=== PATIENT | male | born 1970 | race Caucasian/White ===

== ENCOUNTER 2019-08-13 22:08 | Inpatient (IN) ==
[2019-08-13] MEDS ORDERED: Aspirin 81 MG TAB.CHEW PO ONE (22:16)
[2019-08-13 22:44] LABS: Basophils % 0.6 %; Eosinophils # 0.3 K/mcL (0.0-0.6); Eosinophils % 4.2 %; Hematocrit 43.2 % (37.5-50.1); Immature Granulocytes % 0.3 % (0-4); Lymphocytes # 2.3 K/mcL (0.6-4.6); Lymphocytes % 33.7 %; Mean Corpuscular HGB Conc 34.7 g/dL (31.6-35.5); Mean Corpuscular Hemoglobin 29.1 pg (28.0-33.3); Mean Corpuscular Volume 83.9 fL (83.0-100.0); Mean Platelet Volume 9.4 fL (9.4-12.4); Monocytes # 0.3 K/mcL (0.0-1.3); Monocytes % 4.2 %; Neutrophils # 3.9 K/mcL (1.6-8.9); Platelet Count 213 K/mcL (140-400); Red Blood Count 5.15 M/mcL (4.19-5.50); Red Cell Distribution Width 12.8 % (11.5-14.5); White Blood Count 6.9 K/mcL (4.3-11.1)
[2019-08-13] MEDS: Nitroglycerin 0.4 MG TAB.SUBL SL PRN ×2 (22:45→22:50)
[2019-08-13] MEDS ORDERED: *HR* FentaNYL (PF) 100 MCG/2 ML VIAL IVP ONE (22:53)
[2019-08-13 22:58] LABS: Prothrombin Time 11.5 Seconds (9.4-12.1)
[2019-08-13 23:00] LABS: Activated Partial Thrombo Time 27.8 Seconds (26.0-36.0)
[2019-08-13 23:05] LABS: BUN/Creatinine Ratio 10 (6-26); Blood Urea Nitrogen 9 mg/dL (6-20); Calcium 9.1 mg/dL (8.6-10.3); Carbon Dioxide 21 mEq/L (23-29); Chloride 103 mEq/L (98-107); Glucose 177 mg/dL (70-105); Osmolality,Calculated 291 (280-300); Potassium 3.7 mEq/L (3.5-5.1); Sodium 139 mEq/L (136-145); eGFR For African Americans > 60 (> 60); eGFR For Non-African Americans > 60 (> 60)
[2019-08-13 23:06] LABS: Troponin I < 0.03 ng/mL (< 0.04)
[2019-08-14 04:26] LABS: Basophils # 0.1 K/mcL (0.0-0.2); Basophils % 0.7 %; Eosinophils # 0.2 K/mcL (0.0-0.6); Eosinophils % 2.3 %; Hematocrit 42.5 % (37.5-50.1); Hemoglobin 14.5 g/dL (12.9-16.9); Immature Granulocytes % 0.2 % (0-4); Lymphocytes # 2.4 K/mcL (0.6-4.6); Mean Corpuscular HGB Conc 34.1 g/dL (31.6-35.5); Mean Platelet Volume 9.6 fL (9.4-12.4); Monocytes # 0.6 K/mcL (0.0-1.3); Monocytes % 6.8 %; Platelet Count 228 K/mcL (140-400); Red Cell Distribution Width 12.8 % (11.5-14.5); White Blood Count 8.2 K/mcL (4.3-11.1)
[2019-08-14 04:48] LABS: BUN/Creatinine Ratio 11 (6-26); Blood Urea Nitrogen 10 mg/dL (6-20); Calcium 9.2 mg/dL (8.6-10.3); Carbon Dioxide 25 mEq/L (23-29); Chloride 106 mEq/L (98-107); Chol/HDL Ratio 4.1 (0-4.9); Cholesterol 212 mg/dL (< 200); Glucose 108 mg/dL (70-105); HDL Cholesterol 52 mg/dL (40-59); LDL Cholesterol,Calculated 148 mg/dL (0-99); Osmolality,Calculated 286 (280-300); Potassium 4.7 mEq/L (3.5-5.1); Sodium 138 mEq/L (136-145); Triglycerides 60 mg/dL (< 150); Troponin I 0.07 ng/mL (< 0.04); eGFR For African Americans > 60 (> 60); eGFR For Non-African Americans > 60 (> 60)
[2019-08-14 05:02] LABS: Thyroid Stimulating Hormone 1.784 mcIU/mL (0.340-5.600)
[2019-08-14] MEDS ORDERED: *HR* Heparin 5,000 UNIT/ML VIAL SQ SCH (06:00)
[2019-08-14 08:05] LABS: Estimated Average Glucose 120 mg/dl
[2019-08-14] MEDS ORDERED: *HR* Heparin 5,000 UNIT/ML VIAL IVP PRN ×2 (08:57)
[2019-08-14] MEDS: Aspirin 81 MG TAB.CHEW PO SCH (09:25)
[2019-08-14] MEDS: carvediloL 6.25 MG TABLET PO SCH ×2 (09:25→17:49)
[2019-08-14 10:12] LABS: Hematocrit 43.4 % (37.5-50.1); Hemoglobin 14.9 g/dL (12.9-16.9); Mean Corpuscular HGB Conc 34.3 g/dL (31.6-35.5); Mean Corpuscular Hemoglobin 29.2 pg (28.0-33.3); Mean Corpuscular Volume 85.1 fL (83.0-100.0); Mean Platelet Volume 9.4 fL (9.4-12.4); Platelet Count 224 K/mcL (140-400); Red Cell Distribution Width 12.9 % (11.5-14.5); White Blood Count 7.8 K/mcL (4.3-11.1)
[2019-08-14 10:18] LABS: Prothrombin Time 11.4 Seconds (9.4-12.1)
[2019-08-14] MEDS: Heparin 25,000 UNIT/250 ML D5W 25,000 UNIT/250 ML IV.SOLN IVC SCH (11:20)
[2019-08-15 06:09] LABS: Hemoglobin 13.7 g/dL (12.9-16.9); Mean Corpuscular HGB Conc 34.3 g/dL (31.6-35.5); Mean Corpuscular Hemoglobin 29.3 pg (28.0-33.3); Mean Corpuscular Volume 85.7 fL (83.0-100.0); Mean Platelet Volume 9.6 fL (9.4-12.4); Platelet Count 205 K/mcL (140-400); Red Blood Count 4.67 M/mcL (4.19-5.50); White Blood Count 7.7 K/mcL (4.3-11.1)
[2019-08-15 06:34] LABS: BUN/Creatinine Ratio 15 (6-26); Blood Urea Nitrogen 15 mg/dL (6-20); Calcium 8.7 mg/dL (8.6-10.3); Carbon Dioxide 26 mEq/L (23-29); Chloride 103 mEq/L (98-107); Glucose 115 mg/dL (70-105); Osmolality,Calculated 290 (280-300); Potassium 3.9 mEq/L (3.5-5.1); Sodium 139 mEq/L (136-145); eGFR For African Americans > 60 (> 60); eGFR For Non-African Americans > 60 (> 60)
[2019-08-15] MEDS ORDERED: Perflutren Lipid Microsphere 1.3 ML in 0.9 % Sodium Chloride 8.7 ML IVP ONE (07:09)
[2019-08-15] MEDS: Aspirin 81 MG TAB.CHEW PO SCH (10:30)
[2019-08-15] MEDS: Heparin 25,000 UNIT/250 ML D5W 25,000 UNIT/250 ML IV.SOLN IVC SCH (11:13)
[2019-08-15] MEDS: carvediloL 6.25 MG TABLET PO SCH ×2 (13:08→18:49)
[2019-08-15] MEDS ORDERED: ISOVUE-370 200 ML INFUS..BTL ONE ×2 (16:00→17:03)
[2019-08-15] MEDS ORDERED: Nitroglycerin 1,000 MCG/10 ML VIAL IV ONE ×2 (16:00→17:04)
[2019-08-15] MEDS ORDERED: *HR* Heparin 10,000 UNIT/10 ML VIAL ONE ×2 (16:00→17:03)
[2019-08-15] MEDS ORDERED: 0.9 % Sodium Chloride 2,000 ML ONE (16:00)
[2019-08-15] MEDS ORDERED: Heparin 1,000 UNITS/500 mL 0 ML ONE (16:00)
[2019-08-15] MEDS ORDERED: Heparin 1,000 UNITS/500 mL 500 ML ONE (17:03)
[2019-08-15] MEDS ORDERED: 0.9 % Sodium Chloride 1,000 ML ONE ×3 (17:03→17:36)
[2019-08-15] MEDS ORDERED: *HR* FentaNYL (PF) 100 MCG/2 ML VIAL ONE (17:34)
[2019-08-15] MEDS ORDERED: *HR* Midazolam HCl 2 MG/2 ML VIAL ONE (17:34)
[2019-08-16 01:43] LABS: Hematocrit 38.6 % (37.5-50.1); Hemoglobin 12.9 g/dL (12.9-16.9); Mean Corpuscular HGB Conc 33.4 g/dL (31.6-35.5); Mean Corpuscular Hemoglobin 29.3 pg (28.0-33.3); Mean Corpuscular Volume 87.5 fL (83.0-100.0); Mean Platelet Volume 9.8 fL (9.4-12.4); Platelet Count 188 K/mcL (140-400); Red Blood Count 4.41 M/mcL (4.19-5.50); Red Cell Distribution Width 12.8 % (11.5-14.5)
[2019-08-16] MEDS: Acetaminophen 325 MG TABLET PO PRN ×2 (01:48→21:03)
[2019-08-16 01:58] LABS: BUN/Creatinine Ratio 15 (6-26); Blood Urea Nitrogen 17 mg/dL (6-20); Calcium 8.8 mg/dL (8.6-10.3); Carbon Dioxide 26 mEq/L (23-29); Chloride 107 mEq/L (98-107); Glucose 97 mg/dL (70-105); Osmolality,Calculated 287 (280-300); Potassium 3.7 mEq/L (3.5-5.1); Sodium 138 mEq/L (136-145); eGFR For African Americans > 60 (> 60); eGFR For Non-African Americans > 60 (> 60)
[2019-08-16] MEDS: carvediloL 6.25 MG TABLET PO SCH ×2 (08:01→16:23)
[2019-08-16] MEDS: Aspirin 81 MG TAB.CHEW PO SCH (08:01)
[2019-08-16] MEDS: Heparin 25,000 UNIT/250 ML D5W 25,000 UNIT/250 ML IV.SOLN IVC SCH (10:09)
[2019-08-17] MEDS: Aspirin 81 MG TAB.CHEW PO SCH (08:56)
[2019-08-17] MEDS: Heparin 25,000 UNIT/250 ML D5W 25,000 UNIT/250 ML IV.SOLN IVC SCH (08:56)
[2019-08-17] MEDS: carvediloL 6.25 MG TABLET PO SCH ×2 (08:56→16:48)
[2019-08-18] MEDS: Heparin 25,000 UNIT/250 ML D5W 25,000 UNIT/250 ML IV.SOLN IVC SCH (05:35)
[2019-08-18] MEDS: carvediloL 6.25 MG TABLET PO SCH ×2 (08:44→17:13)
[2019-08-18] MEDS: Aspirin 81 MG TAB.CHEW PO SCH (09:05)
[2019-08-19] MEDS: Heparin 25,000 UNIT/250 ML D5W 25,000 UNIT/250 ML IV.SOLN IVC SCH (04:16)
[2019-08-19] MEDS: carvediloL 6.25 MG TABLET PO SCH ×2 (10:48→17:31)
[2019-08-19] MEDS: Aspirin 81 MG TAB.CHEW PO SCH (10:48)
[2019-08-20] MEDS: Heparin 25,000 UNIT/250 ML D5W 25,000 UNIT/250 ML IV.SOLN IVC SCH (02:09)
[2019-08-20] MEDS: Aspirin 81 MG TAB.CHEW PO SCH (08:52)
[2019-08-20] MEDS: carvediloL 6.25 MG TABLET PO SCH ×2 (08:52→15:47)
[2019-08-20] MEDS: Nitroglycerin 0.4 MG TAB.SUBL SL PRN (21:58)
[2019-08-20] MEDS: Acetaminophen 325 MG TABLET PO PRN (22:04)
[2019-08-20] MEDS ORDERED: Morphine Sulfate 2 MG/ML SYRINGE IVP PRN (23:08)
[2019-08-20 23:23] LABS: Hematocrit 41.8 % (37.5-50.1); Mean Corpuscular HGB Conc 35.2 g/dL (31.6-35.5); Mean Corpuscular Hemoglobin 29.6 pg (28.0-33.3); Mean Corpuscular Volume 84.1 fL (83.0-100.0); Platelet Count 243 K/mcL (140-400); Red Blood Count 4.97 M/mcL (4.19-5.50); Red Cell Distribution Width 13.1 % (11.5-14.5); White Blood Count 10.4 K/mcL (4.3-11.1)
[2019-08-20 23:24] LABS: Hemoglobin 14.7 g/dL (12.9-16.9)
[2019-08-20 23:46] LABS: BUN/Creatinine Ratio 12 (6-26); Blood Urea Nitrogen 15 mg/dL (6-20); Calcium 10.1 mg/dL (8.6-10.3); Carbon Dioxide 24 mEq/L (23-29); Chloride 102 mEq/L (98-107); Glucose 104 mg/dL (70-105); Osmolality,Calculated 283 (280-300); Potassium 4.1 mEq/L (3.5-5.1); Sodium 136 mEq/L (136-145); Troponin I < 0.03 ng/mL (< 0.04); eGFR For African Americans > 60 (> 60); eGFR For Non-African Americans 60 (> 60)
[2019-08-21] MEDS ORDERED: Nitroglycerin 0.4 MG TAB.SUBL SL PRN (00:28)
[2019-08-21] MEDS ORDERED: *HR* Heparin 5,000 UNIT/ML VIAL IVP PRN ×2 (00:28)
[2019-08-21] MEDS ORDERED: Acetaminophen 325 MG TABLET PO PRN (00:28)
[2019-08-21] MEDS: Heparin 25,000 UNIT/250 ML D5W 25,000 UNIT/250 ML IV.SOLN IVC SCH (01:32)
[2019-08-21] MEDS: Chlorhexidine Rinse 15 ML MOUTHWASH MM SCH ×2 (01:56→08:12)
[2019-08-21 04:49] LABS: Hematocrit 41.1 % (37.5-50.1); Hemoglobin 14.6 g/dL (12.9-16.9); Mean Corpuscular HGB Conc 35.5 g/dL (31.6-35.5); Mean Corpuscular Hemoglobin 29.6 pg (28.0-33.3); Mean Corpuscular Volume 83.4 fL (83.0-100.0); Platelet Count 225 K/mcL (140-400); Red Blood Count 4.93 M/mcL (4.19-5.50); White Blood Count 10.5 K/mcL (4.3-11.1)
[2019-08-21 04:51] LABS: INR 1.1; Prothrombin Time 12.1 Seconds (9.4-12.1)
[2019-08-21 05:04] LABS: Alanine Aminotransferase 62 Units/L (7-52); Albumin 3.9 g/dL (3.5-5.7); Albumin/Globulin Ratio 1.3 (1.1-2.2); Alkaline Phosphatase 137 Units/L (34-104); Aspartate Amino Transferase 31 Units/L (13-39); BUN/Creatinine Ratio 14 (6-26); Bilirubin,Total 0.6 mg/dL (0.3-1.0); Blood Urea Nitrogen 16 mg/dL (6-20); Calcium 9.7 mg/dL (8.6-10.3); Carbon Dioxide 23 mEq/L (23-29); Chloride 103 mEq/L (98-107); Glucose 150 mg/dL (70-105); Osmolality,Calculated 280 (280-300); Potassium 4.2 mEq/L (3.5-5.1); Sodium 133 mEq/L (136-145); Total Protein 6.9 g/dL (6.4-8.9); eGFR For African Americans > 60 (> 60); eGFR For Non-African Americans > 60 (> 60)
[2019-08-21] MEDS: carvediloL 6.25 MG TABLET PO SCH ×2 (08:11→16:18)
[2019-08-21] MEDS: Aspirin 81 MG TAB.CHEW PO SCH (08:12)
[2019-08-21] MEDS ORDERED: Chlorhexidine Rinse 15 ML MOUTHWASH MM SCH (09:00)
[2019-08-22] MEDS ORDERED: NiCARdipine 2.5 MG/10 ML Syringe IVPB ONE (05:59)
[2019-08-22] MEDS ORDERED: *HR* FentaNYL (PF) 1,000 MCG/20 ML VIAL ONE (06:03)
[2019-08-22] MEDS ORDERED: *HR* Rocuronium Bromide 50 MG/5 ML VIAL ONE ×3 (06:03→10:50)
[2019-08-22] MEDS ORDERED: *HR* PHENYLEPHRINE 1,000 MCG/10 ML SYRINGE IVP ONE (06:03)
[2019-08-22] MEDS ORDERED: *HR* Midazolam HCl 5 MG/5 ML VIAL IVP ONE (06:03)
[2019-08-22] MEDS ORDERED: *HR* Etomidate 20 MG/10 ML AMPUL IVP ONE (06:04)
[2019-08-22] MEDS ORDERED: Calcium Gluconate 1,000 MG/10 ML VIAL ONE (06:04)
[2019-08-22] MEDS ORDERED: Famotidine 20 MG/2 ML VIAL ONE (06:04)
[2019-08-22] MEDS ORDERED: Protamine Sulfate 250 MG/25 ML VIAL IVP ONE (06:04)
[2019-08-22] MEDS ORDERED: Tranexamic Acid 1,000 MG/10 ML VIAL ONE ×2 (06:04→09:07)
[2019-08-22] MEDS: Morphine Sulfate 2 MG/ML SYRINGE IVP PRN ×2 (06:46→14:23)
[2019-08-22] MEDS ORDERED: Tranexamic Acid 1,000 MG/10 ML VIAL IVP ONE (07:34)
[2019-08-22] MEDS ORDERED: Heparin 1,000 UNITS/500 mL IV.SOLN IVC ONE (07:34)
[2019-08-22] MEDS ORDERED: Albumin Human 25% 25 GM/100 ML IV.SOLN IV ONE (07:34)
[2019-08-22] MEDS ORDERED: *HR* Heparin 10,000 UNIT/10 ML VIAL IV ONE (07:34)
[2019-08-22] MEDS ORDERED: Mannitol 25% vial 12.5 GM/50 ML VIAL IVP ONE (07:34)
[2019-08-22] MEDS ORDERED: Lidocaine 2% Syringe 100 MG/5 ML IV ONE (07:34)
[2019-08-22] MEDS ORDERED: Sodium Bicarbonate 50 MEQ/50 ML VIAL IVC ONE (07:34)
[2019-08-22] MEDS ORDERED: D5% in Water 250 ML IV BAG IV ONE (07:34)
[2019-08-22] MEDS ORDERED: *HR* Magnesium Sulfate 2 GM/50 ML PIGGYBACK IVPB ONE (07:34)
[2019-08-22] MEDS ORDERED: *HR* Phenylephrine 10 MG/ML VIAL IVC ONE (07:34)
[2019-08-22] MEDS ORDERED: CeFAZolin Syr 2,000MG/20 ML 2,000 MG/20 ML SYRINGE IVPB ONE ×2 (08:15)
[2019-08-22 08:33] LABS: ABG Base Excess -1 mEq/L (-2 to 3); ABG Chloride 102 mEq/L (98-107); ABG Glucose 104 mg/dL (60-95); ABG HCO3 26 mEq/L (21-27); ABG Ionized Calcium 1.18 mmol/L (1.15-1.35); ABG Oxygen Saturation 98 % (95-98); ABG PCO2 56 mmHg (35-45); ABG PH 7.28 pH Units (7.32-7.45); ABG PO2 123 mmHg (85-104); ABG TCO2 28 mEq/L (20-26)
[2019-08-22] MEDS ORDERED: niCARdipine 20 MG/200 ML MLS IVC ONE (08:39)
[2019-08-22] MEDS ORDERED: *HR* Metoprolol 5 MG/5 ML VIAL IVP ONE (09:03)
[2019-08-22] MEDS ORDERED: Esmolol 100 MG/10 ML VIAL IVP ONE (09:03)
[2019-08-22 09:33] LABS: ABG Base Excess -2 mEq/L (-2 to 3); ABG Chloride 101 mEq/L (98-107); ABG Glucose 134 mg/dL (60-95); ABG HCO3 24 mEq/L (21-27); ABG Ionized Calcium 1.12 mmol/L (1.15-1.35); ABG Oxygen Saturation 94 % (95-98); ABG PCO2 41 mmHg (35-45); ABG PH 7.37 pH Units (7.32-7.45); ABG PO2 72 mmHg (85-104); ABG TCO2 25 mEq/L (20-26)
[2019-08-22 10:06] LABS: VBG Base Excess -2 mEq/L; VBG Chloride 97 mEq/L (98-107); VBG Glucose 181 mg/dl (65-95); VBG HCO3 25 mEq/L (21-27); VBG Ionized Calcium 1.04 mmol/L (1.15-1.35); VBG Oxygen Saturation 84 %; VBG PCO2 47 mmHg (41-51); VBG PH 7.32 pH Units (7.32-7.42); VBG PO2 53 mmHg (25-50); VBG Total CO2 26 mEq/L
[2019-08-22 10:44] LABS: ABG Base Excess 4 mEq/L (-2 to 3); ABG Chloride 95 mEq/L (98-107); ABG Glucose 174 mg/dL (60-95); ABG HCO3 26 mEq/L (21-27); ABG Ionized Calcium 0.99 mmol/L (1.15-1.35); ABG Oxygen Saturation 100 % (95-98); ABG PCO2 31 mmHg (35-45); ABG PH 7.54 pH Units (7.32-7.45); ABG PO2 518 mmHg (85-104); ABG TCO2 27 mEq/L (20-26)
[2019-08-22 11:45] LABS: ABG Base Excess 0 mEq/L (-2 to 3); ABG Chloride 97 mEq/L (98-107); ABG Glucose 116 mg/dL (60-95); ABG HCO3 25 mEq/L (21-27); ABG Ionized Calcium 1.22 mmol/L (1.15-1.35); ABG Oxygen Saturation 95 % (95-98); ABG PCO2 43 mmHg (35-45); ABG PH 7.37 pH Units (7.32-7.45); ABG PO2 78 mmHg (85-104); ABG TCO2 26 mEq/L (20-26)
[2019-08-22] MEDS ORDERED: *HR* FentaNYL (PF) 100 MCG/2 ML VIAL IVP PRN (12:17)
[2019-08-22] MEDS ORDERED: Ondansetron 4 MG/2 ML VIAL IVP PRN (12:17)
[2019-08-22] MEDS ORDERED: *HR* Dextrose 50 % in Water (Syg) 50 ML SYRINGE IVP PRN (12:17)
[2019-08-22] MEDS ORDERED: Acetaminophen 650 MG RECTAL SUPP RC PRN (12:17)
[2019-08-22] MEDS ORDERED: Calcium Gluconate 1gm/50mL 1 GM/50 ML BAG IVPB PRN (12:17)
[2019-08-22] MEDS ORDERED: Naloxone 0.4 MG/ML INJ IVP PRN (12:17)
[2019-08-22] MEDS ORDERED: Insulin Regular, Human 100 UNIT/ML IV PRN (12:17)
[2019-08-22] MEDS ORDERED: Potassium Chloride 40 MEQ/200 ML BAG IVPB PRN (12:17)
[2019-08-22 12:42] LABS: ABG Base Excess 1 mEq/L (-2 to 3); ABG HCO3 27 mEq/L (21-27); ABG Oxygen Saturation 99 % (95-98); ABG PCO2 49 mmHg (35-45); ABG PH 7.36 pH Units (7.32-7.45); ABG PO2 149 mmHg (85-104); ABG TCO2 29 mEq/L (20-26); Blood Gas Modality ASSIST CONTROL; Blood Gas VT 600 cc
[2019-08-22 12:45] LABS: Basophils % 0.3 %; Eosinophils # 0.1 K/mcL (0.0-0.6); Eosinophils % 1.1 %; Hematocrit 31.4 % (37.5-50.1); Immature Granulocytes % 0.7 % (0-4); Lymphocytes # 1.9 K/mcL (0.6-4.6); Lymphocytes % 18.8 %; Mean Corpuscular HGB Conc 35.7 g/dL (31.6-35.5); Mean Corpuscular Hemoglobin 29.3 pg (28.0-33.3); Mean Corpuscular Volume 82.2 fL (83.0-100.0); Mean Platelet Volume 9.6 fL (9.4-12.4); Monocytes # 0.3 K/mcL (0.0-1.3); Monocytes % 2.8 %; Neutrophils # 7.8 K/mcL (1.6-8.9); Platelet Count 124 K/mcL (140-400); Red Blood Count 3.82 M/mcL (4.19-5.50); Red Cell Distribution Width 12.9 % (11.5-14.5); Segmented Neutrophils % 76.3 %; White Blood Count 10.2 K/mcL (4.3-11.1)
[2019-08-22] MEDS: niCARdipine 20 MG in 0.9 % Sodium Chloride 192 ML IVC SCH (12:47)
[2019-08-22 12:52] LABS: INR 1.4; Prothrombin Time 16.4 Seconds (9.4-12.1)
[2019-08-22 12:54] LABS: Activated Partial Thrombo Time 31.5 Seconds (26.0-36.0)
[2019-08-22 12:58] LABS: Hemoglobin 11.2 g/dL (12.9-16.9)
[2019-08-22 12:59] LABS: BUN/Creatinine Ratio 11 (6-26); Blood Urea Nitrogen 12 mg/dL (6-20); Carbon Dioxide 27 mEq/L (23-29); Chloride 104 mEq/L (98-107); Glucose 80 mg/dL (70-105); Magnesium 2.5 mg/dL (1.6-2.6); Osmolality,Calculated 289 (280-300); Potassium 3.7 mEq/L (3.5-5.1); Sodium 140 mEq/L (136-145); eGFR For African Americans > 60 (> 60); eGFR For Non-African Americans > 60 (> 60)
[2019-08-22] MEDS: Heparin 25,000 UNIT/250 ML D5W 25,000 UNIT/250 ML IV.SOLN IVC SCH (13:05)
[2019-08-22] MEDS: Insulin Human Regular 100 UNIT in 0.9 % Sodium Chloride 100 ML IVC SCH (13:15)
[2019-08-22] MEDS: 0.9 % Sodium Chloride w KCl 20 MEQ/1,000 ML MLS IVC SCH (13:15)
[2019-08-22] MEDS: Norepinephrine 4 MG in 0.9 % Sodium Chloride 250 ML IVC SCH ×2 (13:16→20:33)
[2019-08-22] MEDS: Pantoprazole 40 MG VIAL IVP SCH (13:19)
[2019-08-22] MEDS: *HR* OxyCODONE/APAP 5/325 TABLET PO PRN ×3 (14:24→23:09)
[2019-08-22] MEDS ORDERED: *HR* Metoprolol 5 MG/5 ML VIAL IVP PRN (14:26)
[2019-08-22 15:46] LABS: ABG Base Excess 1 mEq/L (-2 to 3); ABG HCO3 25 mEq/L (21-27); ABG Oxygen Saturation 99 % (95-98); ABG PCO2 36 mmHg (35-45); ABG PH 7.44 pH Units (7.32-7.45); ABG PO2 121 mmHg (85-104); ABG TCO2 26 mEq/L (20-26); Blood Gas Modality ASSIST CONTROL; Blood Gas VT 750 cc
[2019-08-22 17:40] LABS: ABG Base Excess 1 mEq/L (-2 to 3); ABG HCO3 27 mEq/L (21-27); ABG Oxygen Saturation 98 % (95-98); ABG PCO2 48 mmHg (35-45); ABG PH 7.36 pH Units (7.32-7.45); ABG PO2 104 mmHg (85-104); ABG TCO2 29 mEq/L (20-26); Blood Gas Modality CPAP/PS; Blood Gas Pressure Support 5 cm H2O
[2019-08-22] MEDS: Ketorolac 15 MG/ML VIAL IVP SCH ×2 (17:52→23:35)
[2019-08-22] MEDS: Metoclopramide 10 MG/2 ML VIAL IVP SCH ×2 (17:52→23:35)
[2019-08-22 18:46] LABS: ABG Base Excess 2 mEq/L (-2 to 3); ABG HCO3 27 mEq/L (21-27); ABG Oxygen Saturation 98 % (95-98); ABG PCO2 45 mmHg (35-45); ABG PH 7.39 pH Units (7.32-7.45); ABG PO2 99 mmHg (85-104); ABG TCO2 28 mEq/L (20-26); Blood Gas FiO2 2.5 (1-15=lpm or21-100=%)
[2019-08-22] MEDS: Chlorhexidine Rinse 15 ML MOUTHWASH MM SCH (21:06)
[2019-08-23] MEDS: Norepinephrine 4 MG in 0.9 % Sodium Chloride 250 ML IVC SCH (00:15)
[2019-08-23 03:51] LABS: Basophils # 0.1 K/mcL (0.0-0.2); Basophils % 0.5 %; Eosinophils # 0.1 K/mcL (0.0-0.6); Eosinophils % 1.5 %; Hematocrit 27.3 % (37.5-50.1); Hemoglobin 9.8 g/dL (12.9-16.9); Immature Granulocytes % 0.4 % (0-4); Lymphocytes # 1.5 K/mcL (0.6-4.6); Lymphocytes % 15.1 %; Mean Corpuscular HGB Conc 35.9 g/dL (31.6-35.5); Mean Corpuscular Volume 83.5 fL (83.0-100.0); Mean Platelet Volume 9.7 fL (9.4-12.4); Monocytes # 0.8 K/mcL (0.0-1.3); Monocytes % 8.4 %; Neutrophils # 7.1 K/mcL (1.6-8.9); Platelet Count 165 K/mcL (140-400); Red Blood Count 3.27 M/mcL (4.19-5.50); Red Cell Distribution Width 13.2 % (11.5-14.5); Segmented Neutrophils % 74.1 %; White Blood Count 9.6 K/mcL (4.3-11.1)
[2019-08-23 03:56] LABS: INR 1.3; Prothrombin Time 15.3 Seconds (9.4-12.1)
[2019-08-23 04:12] LABS: BUN/Creatinine Ratio 12 (6-26); Blood Urea Nitrogen 14 mg/dL (6-20); Calcium 8.1 mg/dL (8.6-10.3); Carbon Dioxide 22 mEq/L (23-29); Chloride 107 mEq/L (98-107); Glucose 121 mg/dL (70-105); Osmolality,Calculated 292 (280-300); Potassium 4.6 mEq/L (3.5-5.1); Sodium 140 mEq/L (136-145); eGFR For African Americans > 60 (> 60); eGFR For Non-African Americans > 60 (> 60)
[2019-08-23] MEDS: Ketorolac 15 MG/ML VIAL IVP SCH ×3 (05:40→18:05)
[2019-08-23] MEDS: Metoclopramide 10 MG/2 ML VIAL IVP SCH ×3 (05:40→18:05)
[2019-08-23] MEDS ORDERED: *HR* Dextrose 50 % in Water (Syg) 50 ML SYRINGE IVP PRN (06:54)
[2019-08-23] MEDS ORDERED: D5% in Water 1,000 ML IVC PRN (06:54)
[2019-08-23] MEDS ORDERED: Dextrose Gel 15 GM/37.5 ML TUBE PO PRN ×2 (06:54)
[2019-08-23] MEDS: carvediloL 6.25 MG TABLET PO SCH ×3 (07:53→17:12)
[2019-08-23] MEDS: Heparin 25,000 UNIT/250 ML D5W 25,000 UNIT/250 ML IV.SOLN IVC SCH (07:56)
[2019-08-23] MEDS: Aspirin 81 MG TAB.CHEW PO SCH (07:58)
[2019-08-23] MEDS: Aspirin Enteric Coated 81 MG Tablet PO SCH (08:35)
[2019-08-23] MEDS: Pantoprazole 40 MG VIAL IVP SCH (08:35)
[2019-08-23] MEDS: Furosemide 20 MG/2 ML VIAL IVP SCH ×2 (08:35→21:13)
[2019-08-23] MEDS: 0.9 % Sodium Chloride w KCl 20 MEQ/1,000 ML MLS IVC SCH (08:35)
[2019-08-23] MEDS: Insulin LISPRO 300 UNITS/3 ML VIAL SQ SCH ×3 (08:35→17:11)
[2019-08-23] MEDS: Chlorhexidine Rinse 15 ML MOUTHWASH MM SCH ×2 (08:36→21:00)
[2019-08-23] MEDS: niCARdipine 20 MG in 0.9 % Sodium Chloride 192 ML IVC SCH (08:43)
[2019-08-23] MEDS: Insulin Human Regular 100 UNIT in 0.9 % Sodium Chloride 100 ML IVC SCH (08:44)
[2019-08-23] MEDS: *HR* OxyCODONE/APAP 5/325 TABLET PO PRN ×3 (10:01→20:49)
[2019-08-23] MEDS: *HR* FentaNYL (PF) 100 MCG/2 ML VIAL IVP PRN ×3 (10:33→23:12)
[2019-08-23] MEDS ORDERED: Insulin LISPRO 300 UNITS/3 ML VIAL SQ SCH (21:00)
[2019-08-24] MEDS: Ketorolac 15 MG/ML VIAL IVP SCH ×5 (00:36→23:13)
[2019-08-24] MEDS: Metoclopramide 10 MG/2 ML VIAL IVP SCH ×3 (00:37→12:20)
[2019-08-24] MEDS: *HR* FentaNYL (PF) 100 MCG/2 ML VIAL IVP PRN (04:22)
[2019-08-24] MEDS: *HR* OxyCODONE/APAP 5/325 TABLET PO PRN ×2 (04:22→15:44)
[2019-08-24 04:48] LABS: Basophils % 0.4 %; Eosinophils # 0.3 K/mcL (0.0-0.6); Eosinophils % 2.5 %; Hemoglobin 9.7 g/dL (12.9-16.9); Immature Granulocytes % 0.4 % (0-4); Lymphocytes # 1.5 K/mcL (0.6-4.6); Mean Corpuscular HGB Conc 34.6 g/dL (31.6-35.5); Mean Corpuscular Hemoglobin 29.5 pg (28.0-33.3); Mean Corpuscular Volume 85.1 fL (83.0-100.0); Mean Platelet Volume 10.1 fL (9.4-12.4); Monocytes # 0.7 K/mcL (0.0-1.3); Monocytes % 7.2 %; Neutrophils # 7.4 K/mcL (1.6-8.9); Platelet Count 147 K/mcL (140-400); Red Blood Count 3.29 M/mcL (4.19-5.50); Red Cell Distribution Width 13.3 % (11.5-14.5); Segmented Neutrophils % 74.5 %
[2019-08-24 04:58] LABS: BUN/Creatinine Ratio 15 (6-26); Blood Urea Nitrogen 20 mg/dL (6-20); Calcium 8.7 mg/dL (8.6-10.3); Carbon Dioxide 25 mEq/L (23-29); Chloride 100 mEq/L (98-107); Glucose 129 mg/dL (70-105); Osmolality,Calculated 282 (280-300); Potassium 3.6 mEq/L (3.5-5.1); Sodium 134 mEq/L (136-145); eGFR For African Americans > 60 (> 60); eGFR For Non-African Americans 56 (> 60)
[2019-08-24] MEDS: Pantoprazole 40 MG VIAL IVP SCH (08:04)
[2019-08-24] MEDS: Furosemide 20 MG/2 ML VIAL IVP SCH (08:04)
[2019-08-24] MEDS: Aspirin Enteric Coated 81 MG Tablet PO SCH (08:04)
[2019-08-24] MEDS: Chlorhexidine Rinse 15 ML MOUTHWASH MM SCH ×2 (08:05→19:51)
[2019-08-24] MEDS: carvediloL 6.25 MG TABLET PO SCH ×2 (08:05→17:11)
[2019-08-24] MEDS: 0.9 % Sodium Chloride w KCl 20 MEQ/1,000 ML MLS IVC SCH (08:08)
[2019-08-24] MEDS: Insulin LISPRO 300 UNITS/3 ML VIAL SQ SCH ×4 (08:09→19:50)
[2019-08-24] MEDS: niCARdipine 20 MG in 0.9 % Sodium Chloride 192 ML IVC SCH (12:33)
[2019-08-24] MEDS: Insulin Human Regular 100 UNIT in 0.9 % Sodium Chloride 100 ML IVC SCH (12:34)
[2019-08-24] MEDS ORDERED: *HR* Dextrose 50 % in Water (Syg) 50 ML SYRINGE IVP PRN (13:46)
[2019-08-24] MEDS ORDERED: D5% in Water 1,000 ML IVC PRN (13:46)
[2019-08-24] MEDS ORDERED: Dextrose Gel 15 GM/37.5 ML TUBE PO PRN ×2 (13:46)
[2019-08-24] MEDS ORDERED: Insulin Regular, Human 100 UNIT/ML IV PRN (13:46)
[2019-08-24] MEDS ORDERED: Nitroglycerin 0.4 MG TAB.SUBL SL PRN (13:46)
[2019-08-24] MEDS ORDERED: Ondansetron 4 MG/2 ML VIAL IVP PRN (13:46)
[2019-08-24] MEDS ORDERED: Naloxone 0.4 MG/ML INJ IVP PRN (13:46)
[2019-08-24] MEDS: *HR* Heparin 5,000 UNIT/ML VIAL SQ SCH (17:14)
[2019-08-25] MEDS: *HR* OxyCODONE/APAP 5/325 TABLET PO PRN ×3 (03:52→17:38)
[2019-08-25 04:22] LABS: Basophils % 0.3 %; Eosinophils # 0.3 K/mcL (0.0-0.6); Eosinophils % 2.9 %; Hematocrit 25.6 % (37.5-50.1); Hemoglobin 8.6 g/dL (12.9-16.9); Immature Granulocytes % 0.3 % (0-4); Lymphocytes # 1.8 K/mcL (0.6-4.6); Lymphocytes % 18.7 %; Mean Corpuscular HGB Conc 33.6 g/dL (31.6-35.5); Mean Corpuscular Hemoglobin 29.6 pg (28.0-33.3); Mean Platelet Volume 10.4 fL (9.4-12.4); Monocytes # 0.7 K/mcL (0.0-1.3); Monocytes % 7.1 %; Neutrophils # 6.7 K/mcL (1.6-8.9); Platelet Count 160 K/mcL (140-400); Red Blood Count 2.91 M/mcL (4.19-5.50); Red Cell Distribution Width 13.2 % (11.5-14.5); Segmented Neutrophils % 70.7 %; White Blood Count 9.5 K/mcL (4.3-11.1)
[2019-08-25 04:37] LABS: BUN/Creatinine Ratio 17 (6-26); Blood Urea Nitrogen 21 mg/dL (6-20); Calcium 8.6 mg/dL (8.6-10.3); Carbon Dioxide 27 mEq/L (23-29); Chloride 103 mEq/L (98-107); Glucose 107 mg/dL (70-105); Osmolality,Calculated 281 (280-300); Potassium 3.7 mEq/L (3.5-5.1); Sodium 134 mEq/L (136-145); eGFR For African Americans > 60 (> 60); eGFR For Non-African Americans > 60 (> 60)
[2019-08-25] MEDS: Ketorolac 15 MG/ML VIAL IVP SCH ×3 (06:07→17:38)
[2019-08-25] MEDS: *HR* Heparin 5,000 UNIT/ML VIAL SQ SCH ×2 (06:08→17:38)
[2019-08-25] MEDS: Chlorhexidine Rinse 15 ML MOUTHWASH MM SCH ×2 (07:56→20:45)
[2019-08-25] MEDS: Aspirin Enteric Coated 81 MG Tablet PO SCH (07:57)
[2019-08-25] MEDS ORDERED: Pantoprazole 40 MG VIAL IVP SCH (09:00)
[2019-08-25] MEDS: Insulin LISPRO 300 UNITS/3 ML VIAL SQ SCH ×4 (10:43→20:45)
[2019-08-25] MEDS: carvediloL 6.25 MG TABLET PO SCH ×2 (10:44→16:48)
[2019-08-26] MEDS: Ketorolac 15 MG/ML VIAL IVP SCH ×4 (00:09→17:04)
[2019-08-26] MEDS: *HR* OxyCODONE/APAP 5/325 TABLET PO PRN ×2 (04:53→20:18)
[2019-08-26] MEDS: *HR* Heparin 5,000 UNIT/ML VIAL SQ SCH ×2 (05:55→17:03)
[2019-08-26 07:07] LABS: Basophils % 0.5 %; Eosinophils # 0.1 K/mcL (0.0-0.6); Eosinophils % 1.7 %; Hemoglobin 9.1 g/dL (12.9-16.9); Immature Granulocytes % 0.5 % (0-4); Lymphocytes # 1.5 K/mcL (0.6-4.6); Lymphocytes % 18.3 %; Mean Corpuscular HGB Conc 33.7 g/dL (31.6-35.5); Mean Corpuscular Hemoglobin 29.3 pg (28.0-33.3); Mean Corpuscular Volume 86.8 fL (83.0-100.0); Mean Platelet Volume 9.8 fL (9.4-12.4); Monocytes # 0.6 K/mcL (0.0-1.3); Monocytes % 7.7 %; Neutrophils # 5.9 K/mcL (1.6-8.9); Platelet Count 228 K/mcL (140-400); Red Blood Count 3.11 M/mcL (4.19-5.50); Red Cell Distribution Width 13.2 % (11.5-14.5); Segmented Neutrophils % 71.3 %; White Blood Count 8.2 K/mcL (4.3-11.1)
[2019-08-26 07:20] LABS: BUN/Creatinine Ratio 16 (6-26); Blood Urea Nitrogen 20 mg/dL (6-20); Carbon Dioxide 25 mEq/L (23-29); Chloride 102 mEq/L (98-107); Glucose 117 mg/dL (70-105); Osmolality,Calculated 292 (280-300); Potassium 3.9 mEq/L (3.5-5.1); Sodium 139 mEq/L (136-145); eGFR For African Americans > 60 (> 60); eGFR For Non-African Americans > 60 (> 60)
[2019-08-26] MEDS: Insulin LISPRO 300 UNITS/3 ML VIAL SQ SCH ×4 (08:09→20:22)
[2019-08-26] MEDS: carvediloL 6.25 MG TABLET PO SCH ×2 (08:15→17:04)
[2019-08-26] MEDS: Acetaminophen 325 MG TABLET PO PRN (08:16)
[2019-08-26] MEDS: Aspirin Enteric Coated 81 MG Tablet PO SCH (08:16)
[2019-08-26] MEDS: Chlorhexidine Rinse 15 ML MOUTHWASH MM SCH ×2 (08:16→20:18)
[2019-08-27] MEDS: Ketorolac 15 MG/ML VIAL IVP SCH ×4 (00:02→17:15)
[2019-08-27] MEDS: *HR* OxyCODONE/APAP 5/325 TABLET PO PRN ×3 (04:13→15:00)
[2019-08-27] MEDS: *HR* Heparin 5,000 UNIT/ML VIAL SQ SCH ×2 (06:14→15:59)
[2019-08-27] MEDS: Chlorhexidine Rinse 15 ML MOUTHWASH MM SCH ×2 (08:28→21:03)
[2019-08-27] MEDS: carvediloL 6.25 MG TABLET PO SCH ×2 (08:29→16:00)
[2019-08-27] MEDS: Aspirin Enteric Coated 81 MG Tablet PO SCH (08:29)
[2019-08-27] MEDS: Insulin LISPRO 300 UNITS/3 ML VIAL SQ SCH ×4 (08:29→21:04)
[2019-08-27] MEDS: Acetaminophen 325 MG TABLET PO PRN (17:14)
[2019-08-27] MEDS: *HR* OxyCODONE/APAP 10/325 TABLET PO PRN (21:53)
[2019-08-28] MEDS: *HR* OxyCODONE/APAP 10/325 TABLET PO PRN ×5 (01:52→21:10)
[2019-08-28] MEDS: *HR* Heparin 5,000 UNIT/ML VIAL SQ SCH ×2 (05:57→18:31)
[2019-08-28] MEDS ORDERED: Benzocaine 20% 12 APPL GEL..GRAM. TP PRN (08:23)
[2019-08-28] MEDS: Insulin LISPRO 300 UNITS/3 ML VIAL SQ SCH ×4 (09:08→22:23)
[2019-08-28] MEDS: carvediloL 6.25 MG TABLET PO SCH ×2 (09:10→17:10)
[2019-08-28] MEDS: Aspirin Enteric Coated 81 MG Tablet PO SCH (09:10)
[2019-08-28] MEDS: Chlorhexidine Rinse 15 ML MOUTHWASH MM SCH ×2 (09:10→21:10)
[2019-08-28] MEDS: Acetaminophen 325 MG TABLET PO PRN (09:11)
[2019-08-29] MEDS: *HR* OxyCODONE/APAP 10/325 TABLET PO PRN ×2 (00:33→04:41)
[2019-08-29] MEDS: *HR* Heparin 5,000 UNIT/ML VIAL SQ SCH (04:41)
[2019-08-29 07:30] VITALS: BP 112/75
[2019-08-29] MEDS ORDERED: *HR* OxyCODONE/APAP 5/325 TABLET PO PRN (07:32)
[2019-08-29] MEDS: Insulin LISPRO 300 UNITS/3 ML VIAL SQ SCH (07:46)
[2019-08-29] MEDS: Chlorhexidine Rinse 15 ML MOUTHWASH MM SCH (07:48)
[2019-08-29] MEDS: carvediloL 6.25 MG TABLET PO SCH (07:48)
[2019-08-29] MEDS: Aspirin Enteric Coated 81 MG Tablet PO SCH (07:48)
== END 2019-08-29 11:27 | disposition home or self-care (01) | DRG 233 ==
LOC: 3BNU 22:08 → EMEROOARM 22:08 → 3BNU 08-14 00:22 → SUATTDRO 08-16 10:14 → 2NNU 08-21 00:50 → ICNU 08-22 07:05 → 2NNU 08-25 19:03
PROVIDERS: ADMIT Internal Medicine; ATTEND Thoracic Surgery (Cardiothoracic Vascular Surgery)